=== PATIENT | female | born 1990 | race Caucasian/White ===

== ENCOUNTER 2019-07-13 09:17 | Emergency (ER) | payer SELFPAY ==
[~2019-07-13] VITALS: Ht 172.7 cm; Wt 86.1 kg
[~2019-07-13 09:17] MED LIST: IBUP800T19 PO; PENI500T PO
[2019-07-13 10:06] LABS: BASO # 0.1 x10^3/uL (0.0-0.2); BASO % 1 % (0-3); EOS % 0 % (0-3); HEMATOCRIT 38.4 % (36.0-47.0); HEMOGLOBIN 12.4 g/dL (12.0-15.5); LYMPH # 1.5 x10^3/uL (1.0-4.8); LYMPH % 17 % (24-48); MEAN CORPUSCULAR HEMOGLOBIN 28 pg (25-35); MEAN CORPUSCULAR HGB CONC 32 g/dL (31-37); MEAN CORPUSCULAR VOLUME 87 fL (79-100); MONO # 0.6 x10^3/uL (0.0-1.1); MONO % 7 % (0-9); NEUT # 6.4 x10^3uL (1.8-7.7); NEUT % 75 % (31-73); PLATELET COUNT 345 x10^3/uL (140-400); RED BLOOD COUNT 4.42 x10^6/uL (3.50-5.40); RED CELL DISTRIBUTION WIDTH 15.1 % (11.5-14.5); WHITE BLOOD COUNT 8.5 x10^3/uL (4.0-11.0)
--- NOTE | 2019-07-13 10:09 | PHYS DOC ---
Past History Past Medical History: Schizophrenia (CASANDRA DRAKE MD) Past Surgical History: (CASANDRA DRAKE MD) Smoking: Cigarettes, Greater than 1 pack/day Alcohol Use: None Drug Use: None (CASANDRA DRAKE MD) Adult General Chief Complaint Chief Complaint: PSYCH EVALUATION HPI HPI Patient is a 29 year old female who presents with complaint of hallucinations. The patient was referred to the emergency department from [facility]. Patient with noted history of schizophrenia. States that she is not currently on medications and notes that she has not been on medications for the past 2 years. States that she has recently been starting to hear voices. She denies any suicidal or homicidal ideation at this time and denies any somatic complaints. The patient went to the [facility] for further evaluation and was referred here for medical clearance. Denies any recent injuries. Has not taken any medications to harm herself and denies any other physical acts to try to harm herself. (CASANDRA DRAKE MD) Review of Systems Review of Systems Constitutional: Denies fever or chills [] Eyes: Denies change in visual acuity, redness, or eye pain [] HENT: Denies nasal congestion or sore throat [] Respiratory: Denies cough or shortness of breath [] Cardiovascular: Denies chest pain or edema[] GI: Denies abdominal pain, nausea, vomiting, bloody stools or diarrhea [] : Denies dysuria or hematuria [] Musculoskeletal: Denies back pain or joint pain [] Integument: Denies rash or skin lesions [] Neurologic: Auditory hallucinations, denies headache, focal weakness or sensory changes [] All other systems were reviewed and found to be within normal limits, except as documented in this note. (CASANDRA DRAKE MD) Allergies Allergies Allergies Coded Allergies Type Severity Reaction Last Updated Verified No Known Drug Allergies 01/10/14 No (CASANDRA DRAKE MD) Physical Exam Physical Exam Constitutional: Well developed, well nourished, no acute distress, non-toxic appearance. [] HENT: Normocephalic, atraumatic, bilateral external ears normal, oropharynx moist, no oral exudates, nose normal. [] Eyes: PERRLA, EOMI, conjunctiva normal, no discharge. [] Neck: Normal range of motion, no tenderness, supple, no stridor. [] Cardiovascular:Heart rate regular rhythm, no murmur [] Lungs & Thorax: Bilateral breath sounds clear to auscultation [] Abdomen: Bowel sounds normal, soft, no tenderness, no masses, no pulsatile masses. [] Skin: Warm, dry, no erythema, no rash. [] Back: No tenderness, no CVA tenderness. [] Extremities: No tenderness, no cyanosis, no clubbing, ROM intact, no edema. [] Neurologic: Alert and oriented X 3, normal motor function, normal sensory function, no focal deficits noted. [] Psychologic: Affect flat, judgement normal, mood normal, denies suicidal or homicidal ideation. [] (CASANDRA DRAKE MD) Current Patient Data Vital Signs Vital Signs Date Time Temp Pulse Resp B/P (MAP) Pulse Ox O2 Delivery O2 Flow Rate FiO2 07/13/19 09:27 138/72 (94) Lab Results Laboratory Tests Test 07/13/19 09:34 07/13/19 09:52 07/13/19 09:58 Urine Collection Type Unknown Urine Color Yellow Urine Clarity Clear Urine pH 7.0 Urine Specific [place] 1.020 Urine Protein Neg Urine Glucose (UA) Neg mg/dL Urine Ketones (Stick) 15 mg/dL Urine Blood Neg Urine Nitrite Neg Urine Bilirubin Neg Urine Urobilinogen Dipstick 0.2 mg/dL Urine Leukocyte Esterase Neg Urine RBC Occ /HPF Urine WBC 1-4 /HPF Urine Squamous Epithelial Cells Mod /LPF Urine Bacteria Few /HPF Urine Opiates Screen Neg Urine Methadone Screen Neg Urine Barbiturates Neg Urine Phencyclidine Screen Neg Urine Amphetamine/Methamphetamine Neg Urine Benzodiazepines Screen Neg Urine Cocaine Screen Neg Urine Cannabinoids Screen Neg Urine Ethyl Alcohol Neg White Blood Count 8.5 x10^3/uL Red Blood Count 4.42 x10^6/uL Hemoglobin 12.4 g/dL Hematocrit 38.4 % Mean Corpuscular Volume 87 fL Mean Corpuscular Hemoglobin 28 pg Mean Corpuscular Hemoglobin Concent 32 g/dL Red Cell Distribution Width 15.1 % Platelet Count 345 x10^3/uL Neutrophils (%) (Auto) 75 % Lymphocytes (%) (Auto) 17 % Monocytes (%) (Auto) 7 % Eosinophils (%) (Auto) 0 % Basophils (%) (Auto) 1 % Neutrophils # (Auto) 6.4 x10^3uL Lymphocytes # (Auto) 1.5 x10^3/uL Monocytes # (Auto) 0.6 x10^3/uL Eosinophils # (Auto) 0.0 x10^3/uL Basophils # (Auto) 0.1 x10^3/uL Sodium Level 141 mmol/L Potassium Level 3.9 mmol/L Chloride Level 106 mmol/L Carbon Dioxide Level 22 mmol/L Anion Gap 13 Blood Urea Nitrogen 8 mg/dL Creatinine 0.8 mg/dL Estimated GFR (Cockcroft-Gault) 84.8 Glucose Level 107 mg/dL Calcium Level 9.3 mg/dL Magnesium Level 2.1 mg/dL Salicylates Level 0.8 mg/dL Salicylate Last Dose Date Unknown Salicylate Last Dose Time Unknown Acetaminophen Level < 2.0 mcg/mL Acetaminophen Last Dose Date Unknown Acetaminophen Last Dose Time Unknown Bedside Urine HCG, Qualitative hcg negative (CASANDRA DRAKE MD) EKG EKG Not performed[] (CASANDRA DRAKE MD) Radiology/Procedures Radiology/Procedures Not performed[] (CASANDRA DRAKE MD) Course & Med Decision Making Course & Med Decision Making Pertinent Labs and Imaging studies reviewed. (See chart for details) 1045: Blood work, urinalysis, and drug screen ordered and reviewed in the emergency department. Patient's vital signs remained stable and testing unremarkable for any acute medical illness. The patient is medically cleared at this time for psychiatric screening. 1300: Patient remains in stable condition. Evaluated by Jose psychiatric screener from [facility]. After evaluation, patient deemed to benefit from voluntary inpatient psychiatric admission. Pending acceptance to a psychiatric facility at this time. 1600: Patient has been pacing in the emergency department. Became acutely agitated. Code adebayo was called. The patient appears acutely paranoid. She started asking nursing staff to give her back her daughter and started asking for the help of Yaakov and God. Due to agitated state the patient was administered 10 mg IM and Zyprexa. 1852: Patient resting comfortably at this time. Awaiting acceptance for inpatient psychiatric care. Care of patient was signed out to Dr. Estrada.[] (CASANDRA DRAKE MD) Course & Med Decision Making The patient was accepted for admission at [facility]. She was transferred there by ambulance. There were no further complications or issues prior to her transfer. (SADIE ESTRADA DO) Dragon Disclaimer Dragon Disclaimer This electronic medical record was generated, in whole or in part, using a voice recognition dictation system. (CASANDRA DRAKE MD) Departure Departure: Impression: Primary Impression: Schizophrenia Disposition: 65 XFER TO PSYCH HOSP/UNIT Condition: STABLE Referrals: BEAR ECHEVERRIA MD (PCP) Problem Qualifiers Primary Impression: Schizophrenia Schizophrenia type: unspecified Qualified Codes: F20.9 - Schizophrenia, unspecified CASANDRA DRAKE MD Jul 13, 2019 10:08 SADIE ESTRADA DO Jul 14, 2019 06:08
[2019-07-13 10:18] LABS: CALCIUM 9.3 mg/dL (8.5-10.1); CREATININE 0.8 mg/dL (0.6-1.0); GFR 84.8; MAGNESIUM 2.1 mg/dL (1.8-2.4); POTASSIUM 3.9 mmol/L (3.5-5.1)
[2019-07-13 10:22] LABS: BARBITURATES NEG (NEG); BENZODIAZEPINES NEG (NEG); CANNABINOIDS NEG (NEG); COCAINE NEG (NEG); METHADONE NEG (NEG); OPIATES NEG (NEG); PHENCYCLIDINE NEG (NEG)
[2019-07-13 10:24] LABS: ACETAMIN < 2.0 mcg/mL (10-30); SALIC 0.8 mg/dL (2.8-20.0)
[2019-07-13 10:26] LABS: AMPHETAMINE/METHAMPHETAMINE NEG (NEG)
[2019-07-13 10:34] LABS: BACTERIA,URINE FEW /HPF (0-FEW); BILIRUBIN,URINE NEG (NEG); CLARITY,URINE CLEAR; COLOR,URINE YELLOW; GLUCOSE,URINE NEG (NEG); NITRITE,URINE NEG (NEG); RBC,URINE OCC /HPF (0-2); UROBILINOGEN,URINE 0.2 mg/dL (0.2 mg/dL)
[2019-07-13 10:35] LABS: SQUAMOUS EPITHELIAL CELL,UR MOD /LPF
--- NOTE | 2019-07-13 10:54 | NUR ---
CALLED [facility] AND TALKED TO AARON REGARDING A PSYCH SCREEN. HE SAID HE WOULD COME DO THE SCREEN, SOON HE CAN.
[2019-07-13] MEDS ORDERED: OLANZapine IM 10 MG VIAL. IM ONE (16:00)
[2019-07-13 20:35] VITALS: BP 122/89
== END 2019-07-13 21:14 | disposition short-term general hospital (02) ==
LOC: ER 09:17
DX: F20.9 Schizophrenia, unspecified (principal); F17.210 Nicotine dependence, cigarettes, uncomplicated
CPT/HCPCS: 36415; 80048; 80307; 80329; 81001; 81025; 83735; 85025; 96372; 99285; G0480; J3490; 82003

== ENCOUNTER 2019-07-31 15:23 | Emergency (ER) | payer SELFPAY ==
[~2019-07-31] VITALS: Ht 172.7 cm; Wt 91.7 kg
[2019-07-31 15:30] VITALS: BP 132/75
--- NOTE | 2019-07-31 15:42 | PHYS DOC ---
Past History Past Medical History: Schizophrenia (LANI PARKER Jr., DO) Past Medical History: Anemia, Anxiety (JEANINE HOBOSN MD) Past Surgical History: (LANI PARKER Jr., DO) Smoking: Cigarettes, Greater than 1 pack/day Alcohol Use: None Drug Use: None (LANI PARKER Jr., DO) Adult General Chief Complaint Chief Complaint: Psyche eval [facility] HPI Patient is a 29-year-old female who presents to be evaluated for mental health. Patient indicates that she was recently at [facility] and released a little over a week ago. Patient states that today she is having severe that the world is going to end and people, including her sister, want to kill her by stabbing her in small increments. Patient denies any suicidal thoughts. She states that she is fearful and states that she would rather by a bullet than being stabbed to .[] (LANI PARKER Jr., DO) Review of Systems Review of Systems Constitutional: Denies fever or chills [] Respiratory: Denies cough or shortness of breath [] Cardiovascular: No additional information not addressed in HPI [] GI: Denies abdominal pain, nausea, vomiting, bloody stools or diarrhea [] Integument: Denies rash or skin lesions [] Neurologic: Denies headache, focal weakness or sensory changes [] All other systems were reviewed and found to be within normal limits, except as documented in this note. (LANI PARKER Jr., DO) Allergies Allergies Allergies Coded Allergies Type Severity Reaction Last Updated Verified No Known Drug Allergies 01/10/14 No (LANI PARKER Jr., DO) Physical Exam Physical Exam Constitutional: Well developed, well nourished, no acute distress, non-toxic appearance. [] HENT: Normocephalic, atraumatic, bilateral external ears normal, oropharynx moist, no oral exudates, nose normal. [] Eyes: PERRLA, EOMI, conjunctiva normal, no discharge. [] Neck: Normal range of motion, no tenderness, supple, no stridor. [] Cardiovascular:Heart rate regular rhythm, no murmur [] Lungs & Thorax: Bilateral breath sounds clear to auscultation [] Abdomen: Bowel sounds normal, soft, no tenderness. [] Skin: Warm, dry, no erythema, no rash. [] Extremities: No tenderness, no cyanosis, no clubbing, ROM intact, no edema. [] Neurologic: Awake and alert, no focal deficits noted. [] Psychologic: Flattened affect with depressed mood. [] (LANI PARKER Jr., DO) EKG EKG [] (LANI PARKER Jr., DO) Radiology/Procedures Radiology/Procedures [] (LANI PARKER Jr., DO) Course & Med Decision Making Course & Med Decision Making Pertinent Labs and Imaging studies reviewed. (See chart for details) [] (LANI PARKER Jr., DO) Course & Med Decision Making See Dr. Parker notes for details. Pt. hx admitted to [facility] 1 Week ago- Awaiting final Tele. Psych. eval. - 1900. Impression- 1. Hx. of Anxiety Disorder 2. Hx. of Schizophrenia 3. Anemia- HGB 10.8 4. Suicidal Ideation (JEANINE HOBSON MD) Dragon Disclaimer Dragon Disclaimer This electronic medical record was generated, in whole or in part, using a voice recognition dictation system. (LANI PARKER Jr., DO) Departure Departure: Disposition: 01 HOME/RESIDENCE PRIOR TO ADM Condition: STABLE Referrals: BEAR ECHEVERRIA MD (PCP) Dragon Disclaimer This chart was dictated in whole or in part using Voice Recognition software in a busy, high-work load, and often noisy Emergency Department environment. It may contain unintended and wholly unrecognized errors or omissions. (JEANINE HOBSON MD) LANI PARKER Jr., DO Jul 31, 2019 15:42 JEANINE HOBSON MD Jul 31, 2019 18:52
[2019-07-31 16:16] LABS: BACTERIA,URINE 0 /HPF (0-FEW); BILIRUBIN,URINE NEG (NEG); CLARITY,URINE CLEAR; COLOR,URINE YELLOW; GLUCOSE,URINE NEG (NEG); NITRITE,URINE NEG (NEG); SQUAMOUS EPITHELIAL CELL,UR OCC /LPF; UROBILINOGEN,URINE 0.2 mg/dL (0.2 mg/dL); WBC,URINE OCC /HPF (0-4)
[2019-07-31 16:16] LABS: BASO % 1 % (0-3); EOS # 0.1 x10^3/uL (0.0-0.7); EOS % 2 % (0-3); HEMATOCRIT 32.4 % (36.0-47.0); HEMOGLOBIN 10.8 g/dL (12.0-15.5); LYMPH # 1.6 x10^3/uL (1.0-4.8); LYMPH % 33 % (24-48); MEAN CORPUSCULAR HEMOGLOBIN 29 pg (25-35); MEAN CORPUSCULAR HGB CONC 33 g/dL (31-37); MEAN CORPUSCULAR VOLUME 86 fL (79-100); MONO # 0.5 x10^3/uL (0.0-1.1); MONO % 11 % (0-9); NEUT # 2.5 x10^3uL (1.8-7.7); NEUT % 53 % (31-73); PLATELET COUNT 261 x10^3/uL (140-400); RED BLOOD COUNT 3.76 x10^6/uL (3.50-5.40); RED CELL DISTRIBUTION WIDTH 14.8 % (11.5-14.5); WHITE BLOOD COUNT 4.8 x10^3/uL (4.0-11.0)
[2019-07-31 16:20] LABS: AMPHETAMINE/METHAMPHETAMINE NEG (NEG); BARBITURATES NEG (NEG); BENZODIAZEPINES NEG (NEG); CANNABINOIDS NEG (NEG); COCAINE NEG (NEG); METHADONE NEG (NEG); OPIATES NEG (NEG); PHENCYCLIDINE NEG (NEG)
[2019-07-31 16:27] LABS: ANION GAP 7 (6-14); BLOOD UREA NITROGEN 4 mg/dL (7-20); CALCIUM 8.2 mg/dL (8.5-10.1); CARBON DIOXIDE 26 mmol/L (21-32); CHLORIDE 99 mmol/L (98-107); CREATININE 0.7 mg/dL (0.6-1.0); GFR 98.9; GLUCOSE 117 mg/dL (70-99); POTASSIUM 3.4 mmol/L (3.5-5.1); SODIUM 132 mmol/L (136-145)
[2019-07-31 16:38] LABS: ALBUMIN 3.4 g/dL (3.4-5.0); ALK PHOS 50 U/L (46-116); ALT (SGPT) 27 U/L (14-59); AST (SGOT) 17 U/L (15-37); DIRECT BILIRUBIN 0.1 mg/dL (0.0-0.2); TOTAL PROTEIN 6.5 g/dL (6.4-8.2)
[2019-07-31 16:40] LABS: TOTAL BILIRUBIN < 0.1 mg/dL (0.2-1.0)
== END 2019-07-31 21:35 | disposition short-term general hospital (02) ==
LOC: ER 15:23
DX: R45.851 Suicidal ideations (principal); D64.9 Anemia, unspecified; F41.9 Anxiety disorder, unspecified; F20.9 Schizophrenia, unspecified; F17.210 Nicotine dependence, cigarettes, uncomplicated; Z86.2 Personal history of diseases of the blood and blood-forming organs and certain disorders involving the immune mechanism
CPT/HCPCS: 36415; 80048; 80076; 80307; 81001; 81025; 85025; 99285; G0480

== ENCOUNTER 2019-08-23 19:50 | Inpatient (IN) | payer SELFPAY ==
[~2019-08-23] VITALS: Ht 172.7 cm; Wt 89.4 kg
--- NOTE | 2019-08-23 20:13 | PHYS DOC ---
Past History Past Medical History: Anemia, Anxiety, Depression, Schizophrenia Past Surgical History: Smoking: Cigarettes, Greater than 1 pack/day Alcohol Use: Sober Drug Use: None General Adult EDM: Chief Complaint: HALLUCINATIONS AUDIBLE/VISUAL HPI: HPI: ".. I ... need... my .. things.. don't ... take them....".. " My mother is a devil.. or ... a demon... ".. "I need my medical records coder... " ..." I need Yaakov.. to protect me... demons....".." They are everywhere...." Patient is a 29 year old female who presents with above hx and complaints of mental status change with hallucinations and delusions. Pt. recently in seen in ED 07/30 for psychosis and exacerbation of her schizophrena. Pt. received a Tele. Psych. eval. Pt. normally follows with Dr. Shetty for health care maintenance. Pt. has had recent series of Hospital ED eval. and placement in psych. hospitals, [facility], [facility], and [place]. Mother reports that patient has become markedly unstable psychiatrically in the past 6 weeks. Patient reportedly has been off all psych meds the last 3 to 5 days. Currently patient is obviously extremely agitated, manic, pressured speech, hallucinating, delusions that demons are after her. Patient clutching a posterior of Yaakov... begging for Yaakov to protect her from demons coming out of the [place]. Review of Systems: Review of Systems: Constitutional: Denies fever or chills Eyes: Denies change in visual acuity HENT: Denies nasal congestion or sore throat Respiratory: Denies cough or shortness of breath Cardiovascular: Denies chest pain or edema GI: Denies abdominal pain, nausea, vomiting, bloody stools or diarrhea : Denies dysuria Musculoskeletal: Denies back pain or joint pain Integument: Denies rash Neurologic: Denies headache, focal weakness or sensory changes Endocrine: Denies polyuria or polydipsia Lymphatic: Denies swollen glands Psychiatric: Denies depression or anxiety Heart Score: Risk Factors: Risk Factors: DM, Current or recent (<one month) smoker, HTN, HLP, family history of CAD, obesity. Risk Scores: Score 0 - 3: 2.5% MACE over next 6 weeks - Discharge Home Score 4 - 6: 20.3% MACE over next 6 weeks - Admit for Clinical Observation Score 7 - 10: 72.7% MACE over next 6 weeks - Early Invasive Strategies Family History: Family History: Not currently available -due to patient's psychiatric state Current Medications: Current Meds: See nursing for home meds Allergies: Allergies: Allergies Coded Allergies Type Severity Reaction Last Updated Verified haloperidol Allergy Intermediate 07/31/19 Yes Physical Exam: PE: Constitutional: in acute emotional distress, non-toxic appearance. [] HENT: Normocephalic, atraumatic, bilateral external ears normal, oropharynx moist, no oral exudates, nose normal. [] Eyes: PERRLA, EOMI, conjunctiva normal, no discharge. [] Neck: Normal range of motion, no tenderness, supple, no stridor. [] Cardiovascular:Heart rate regular rhythm, no murmur [] Lungs & Thorax: Bilateral breath sounds clear to auscultation [] Abdomen: Bowel sounds normal, soft, no tenderness, no masses, no pulsatile masses. [] Skin: Warm, dry, no erythema, no rash. [] Back: No tenderness, no CVA tenderness. [] Extremities: No tenderness, no cyanosis, no clubbing, ROM intact, no edema. [] Neurologic: Alert and oriented X 3, normal motor function, normal sensory function, no focal deficits noted. [] Psychologic: Affect normal, judgement normal, mood normal. [] EKG: EKG: My interpretation EKG shows a sinus rhythm at 68 bpm. No findings of acute morphology. [] Radiology/Procedures: Radiology/Procedures: My interpretation of chest x-ray shows no acute cardiopulmonary findings for respiratory volume. Does have artifact on upper chest which suspect is the necklace she is wearing [] Course & Med Decision Making: Course & Med Decision Making Pertinent Labs and Imaging studies reviewed. (See chart for details) Patient admitted to Dr. Shetty for stabilization of electrolytes. Will need most likely placement for exacerbation of her schizophrenia and schizo affective disorder. Pt. required restraints with one on one because of her severe agitation, hallucination and delusions. Eventually pt.received Zyprexa 10 IM and 2 mg Ativan p.o. Pt. still requiring one-on-one with restraints at 0100 hrs-. additional dose of Ativan 2 mg given IM and 5 mg Zyprexa IM. [] Impression: 1. Mental Status Change- Acute Psychosis Exacerbation (Off her maintenance meds)- Hx. of Schizophrenia 2. Bipolar - Schizoaffective Disorder 3. Anemia Hgb 11. 4. Hyponatremia 130 5. Hypomagnesium 1.5 6. Active Hallucination and Delusions 7. Extremely Agitated, Manic Abran Disclaimer: Abran Disclaimer: This electronic medical record was generated, in whole or in part, using a voice recognition dictation system. Departure Departure: Disposition: 01 HOME/RESIDENCE PRIOR TO ADM Condition: STABLE Referrals: BEAR SHETTY MD (PCP) Abran Disclaimer This chart was dictated in whole or in part using Voice Recognition software in a busy, high-work load, and often noisy Emergency Department environment. It may contain unintended and wholly unrecognized errors or omissions. JEANINE HOBSON MD Aug 23, 2019 20:13
[2019-08-23 21:28] LABS: BASO # 0.1 x10^3/uL (0.0-0.2); BASO % 1 % (0-3); EOS # 0.1 x10^3/uL (0.0-0.7); EOS % 1 % (0-3); HEMATOCRIT 33.6 % (36.0-47.0); LYMPH # 1.9 x10^3/uL (1.0-4.8); LYMPH % 17 % (24-48); MEAN CORPUSCULAR HEMOGLOBIN 28 pg (25-35); MEAN CORPUSCULAR HGB CONC 33 g/dL (31-37); MEAN CORPUSCULAR VOLUME 85 fL (79-100); MONO # 0.9 x10^3/uL (0.0-1.1); MONO % 8 % (0-9); NEUT # 8.1 x10^3uL (1.8-7.7); NEUT % 74 % (31-73); PLATELET COUNT 304 x10^3/uL (140-400); RED BLOOD COUNT 3.93 x10^6/uL (3.50-5.40)
[2019-08-23 21:41] LABS: U PREG PATIENT NEGATIVE (NEG)
[2019-08-23 21:42] LABS: CALCIUM 8.3 mg/dL (8.5-10.1); CREATININE 0.6 mg/dL (0.6-1.0); GFR 118.2; POTASSIUM 4.1 mmol/L (3.5-5.1)
[2019-08-23 21:44] LABS: AMPHETAMINE/METHAMPHETAMINE NEG (NEG); BARBITURATES NEG (NEG); BENZODIAZEPINES NEG (NEG); CANNABINOIDS NEG (NEG); COCAINE NEG (NEG); METHADONE NEG (NEG); OPIATES NEG (NEG); PHENCYCLIDINE NEG (NEG)
[2019-08-23 21:49] LABS: ALBUMIN 3.8 g/dL (3.4-5.0); DIRECT BILIRUBIN 0.1 mg/dL (0.0-0.2); MAGNESIUM 1.5 mg/dL (1.8-2.4); TOTAL BILIRUBIN 0.2 mg/dL (0.2-1.0); TOTAL PROTEIN 6.8 g/dL (6.4-8.2)
[2019-08-23 22:03] LABS: BILIRUBIN,URINE NEG (NEG); CLARITY,URINE CLEAR; COLOR,URINE COLORLESS; GLUCOSE,URINE NEG (NEG); NITRITE,URINE NEG (NEG); UROBILINOGEN,URINE 0.2 mg/dL (0.2 mg/dL)
[2019-08-23 22:04] LABS: BACTERIA,URINE 0 /HPF (0-FEW); RBC,URINE 0 /HPF (0-2); SQUAMOUS EPITHELIAL CELL,UR FEW /LPF; WBC,URINE 0 /HPF (0-4)
--- NOTE | 2019-08-23 22:28 | RAD ---
PORTABLE CHEST 1V 08/23/2019 8:31 PM INDICATION: Dyspnea COMPARISON: None available TECHNIQUE: Portable frontal view of the chest is provided. FINDINGS: The cardiomediastinal silhouette is within normal limits. Lungs are clear. There are no significant pleural effusions. There is no pulmonary vascular congestion. No pneumothorax. No suspicious osseous abnormality. IMPRESSION: There is no acute cardiopulmonary process. Electronically signed by: Skyla Bass MD (08/23/2019 10:25 PM) [facility]
[2019-08-23 22:57] LABS: SEDIMENTATION RATE 6 (0-25)
[2019-08-23] MEDS ORDERED: ONDANSETRON PF 4 MG/2 ML VIAL. IVP PRN (23:00)
[2019-08-23] MEDS ORDERED: SODIUM BICARB ADULT 8.4% 50 MEQ/50 ML DISP.SYRIN. IV ONE (23:00)
[2019-08-23] MEDS ORDERED: IV NORMAL SALINE 1,000ML 1,000 ML IV ONE (23:00)
[2019-08-23] MEDS ORDERED: IV RINGERS SOLUTION,LACTATED 1,000 ML IV ONE (23:00)
[2019-08-23] MEDS ORDERED: diphenhydrAMINE HCL 25 MG CAPSULE PO ONE (23:15)
[2019-08-23] MEDS ORDERED: OLANZapine IM 10 MG VIAL. IM ONE (23:15)
[2019-08-23] MEDS ORDERED: LORazepam 1 MG TABLET PO ONE (23:15)
[2019-08-23] MEDS ORDERED: SODIUM BICARBONATE 50 MEQ/50 ML VIAL. IV ONE ×2 (23:30)
[2019-08-23] MEDS ORDERED: MAGNESIUM SULFATE 2GM 50 ML IV ONE (23:30)
--- NOTE | 2019-08-23 23:44 | EKG ---
[address] [address] Test Date: 2019-08-23 Test Time: 21:26:37 Pat Name: DYANA SPAULDING Department: Room: 113 A Gender: F Director Of [employer]: : 1990 Requested By: JEANINE HOBSON Order Number: [id number] Reading MD: Hakeem Espinoza Measurements Intervals [place] Rate: 68 P: 45 RI: 144 QRS: 49 QRSD: 84 T: 14 QT: 408 QTc: 434 Interpretive Statements SINUS RHYTHM Electronically Signed On 08-24-2019 11:20:36 CDT by Hakeem Espinoza
[2019-08-24] MEDS ORDERED: OLANZapine IM 10 MG VIAL. IM ONE (01:30)
--- NOTE | 2019-08-24 04:00 | NUR ---
The patient, DYANA SPAULDING, 29 y/o, F admitted by BEAR ECHEVERRIA MD, was given written information regarding hospital policies, unit procedures and contact persons. Valuables were checked and pt vitals were taken . pt is currently resting and has had no complaints tonight.
[2019-08-24 04:02] VITALS: BP 128/74
[2019-08-24] MEDS ORDERED: SODIUM BICARB ADULT 8.4% 50 MEQ/50 ML DISP.SYRIN. ONE (04:42)
[2019-08-24 06:24] VITALS: BP 106/65
[2019-08-24] MEDS ORDERED: IPRATRPIUM/ALBUTEROL 0.5/2.5MG 3 ML NEBU. NEB SCH (08:00)
[2019-08-24] MEDS ORDERED: CLON0.5T PO (08:02)
[2019-08-24] MEDS ORDERED: OXCA300T19 PO (08:02)
[2019-08-24 09:20] LABS: BASO % 1 % (0-3); EOS # 0.1 x10^3/uL (0.0-0.7); EOS % 1 % (0-3); HEMATOCRIT 33.3 % (36.0-47.0); HEMOGLOBIN 10.8 g/dL (12.0-15.5); LYMPH # 1.3 x10^3/uL (1.0-4.8); LYMPH % 25 % (24-48); MEAN CORPUSCULAR HEMOGLOBIN 28 pg (25-35); MEAN CORPUSCULAR HGB CONC 32 g/dL (31-37); MEAN CORPUSCULAR VOLUME 86 fL (79-100); MONO # 0.4 x10^3/uL (0.0-1.1); MONO % 8 % (0-9); NEUT # 3.4 x10^3uL (1.8-7.7); NEUT % 65 % (31-73); PLATELET COUNT 282 x10^3/uL (140-400); RED BLOOD COUNT 3.87 x10^6/uL (3.50-5.40); RED CELL DISTRIBUTION WIDTH 15.4 % (11.5-14.5); WHITE BLOOD COUNT 5.2 x10^3/uL (4.0-11.0)
[2019-08-24] MEDS ORDERED: RISP4TAB2 PO (09:25)
[2019-08-24] MEDS ORDERED: PROP20TA PO (09:25)
[2019-08-24] MEDS ORDERED: OLAN5TAB9 PO (09:25)
[2019-08-24 09:31] LABS: CALCIUM 8.2 mg/dL (8.5-10.1); CREATININE 0.8 mg/dL (0.6-1.0); GFR 84.8; POTASSIUM 3.6 mmol/L (3.5-5.1)
--- NOTE | 2019-08-24 09:45 | NUR ---
NSG NOTE; RECENT HISTORY REPORTED BY MOTHER: MOTHER WANG ROMAN [phone] PT DEVELOPED BIPOLAR W/ SCHIZOPHRENIC TENDENCIES AT APPROX AGE 20 AFTER EXPERIMENTING WITH METH AND K2. PT HAD BEEN SYMPTOM FREE X 2 YEARS WITHOUT REQUIRING MEDICATION AND HAS BEEN CLEAN AND SOBER FOR MANY YEARS PT HAS BEEN UNDER INCREASING LIFE STRESSORS LEADING TO INSOMNIA AND EXHAUSTION WHICH TRIGGERED A PSYCHOTIC BREAK APPROX 8 WEEKS AGO. PT HAS BEEN TO 3 PSYCH FACILITIES IN THE LAST 8 WEEKS WITH GOOD RESULTS AFTER HOSPITALIZATION AT [facility] WITH MED CENTER AND THEIR MEDICATION CHANGES. MOTHER STATES, UNFORTUNATELY, PT STOPPED TAKING HER PSYCH MEDS APPROX 6 DAYS AGO AND HAS BEEN INCREASINGLY MORE ERRATIC TARGETING THE MOTHER A "DEMON". MOTHER IS CONCERNED THAT SHE IS A TRIGGER FOR THE PT AT THIS TIME AND SUGGESTS THAT THE PT BE READMITTED TO [facility]. [employer] NOTIFIED AND WILL LOOK INTO POSSIBLE PLACEMENT
[2019-08-24 10:18] VITALS: BP 120/60
[2019-08-24] MEDS ORDERED: ALBUTEROL SULFATE 2.5 MG/3 ML NEBU. NEB PRN (10:45)
--- NOTE | 2019-08-24 13:59 | NUR ---
PATIENT IS DISCHARGED TO HOME, VERBALIZED UNDERSTANDING OF TAKING HER HOME MEDS, PT AMBULATED FROM ROOM 124 TO THE FRONT DOOR OF THE HOSPITAL ACCOMPANIED BY BARRY VICTORIA, TAKEN HOME BY FAMILY MEMBER VIA PERSONAL VEHICLE.
[2019-08-24 14:04] LABS: % ATYL 2 % (0-0); % BANDS 1 % (0-9); % BASOS 1 % (0-3); % EOS 2 % (0-5); % LYMPHS 15 % (24-48); % MONOS 11 % (0-10); % SEGS 68 % (35-66)
[2019-08-24 14:06] LABS: PLT ESTIMATE ADEQUATE (ADEQUATE)
--- NOTE | 2019-08-24 14:20 | HP ---
ADMIT DATE: 08/23/2019 HISTORY OF PRESENT ILLNESS: A 29-year-old admitted, came in through the Emergency Room. The patient's history of complaints, she has been having some hallucinations and delusions. She has been in multiple hospitals such as [facility], [facility] and [place]. Apparently, she has been under a lot of stress of late of being laid off at her job. The patient has become increasingly agitated, manic, pressured speech, hallucinating and delusions. She seems to want to talk about the conflict of good and evil and God winning over her and also begging through Yaakov to protect her from the demons ____. The patient was admitted because of this acute psychosis. She may have been off her medications and the like. She also claims that her mother was a devil and needed protection from spiritual means. PAST MEDICAL HISTORY: Anemia, anxiety, depression, schizophrenia, . SOCIAL HISTORY: The patient smokes a pack of cigarettes a day. Has been drinking alcohol in the past, but says she has been sober here of late. The patient also has episodes of bipolar disease. Adverse reaction to HALDOL. Socially, the patient, as noted, smokes a pack of cigarettes a day, at times binge ____. Denies hard drug use. REVIEW OF SYSTEMS: Outside of her hallucinations and paranoid psychoses, the patient denies any chest pain, shortness of breath or abdominal pain. Denies any melena, hematochezia, hematemesis and neurologically baseline for her. Neurologically, she is stable. Psychiatrically, she is very unstable. PHYSICAL EXAMINATION: VITAL SIGNS: Blood pressure 150/99, respiratory rate 18, pulse 60, afebrile. HEENT: The patient's head was atraumatic, normocephalic. Eyes: PERRLA without jaundice. Mouth and throat were normal. NECK: Supple. LUNGS: Clear. CARDIOVASCULAR: Stable. ABDOMEN: Soft, diffuse tenderness. No rebounding or guarding. EXTREMITIES: No clubbing, cyanosis or edema. NEUROLOGIC: Intact. The patient's chest x-ray was unremarkable. LABORATORY DATA: The labs were non demonstrative. She is slightly anemic at 10.8 and 33. The patient's chemistries were basically normal. Blood sugar 112-196. Creatinine ____. Toxicology was negative for all measured quantities. As noted, the patient has acute psychosis and fighting demons and paranoid against her mother. The patient otherwise will be admitted, placed on IV fluids and was given IV Ativan. We will try to get her medication list from [facility], get her back on those and make further evaluation on her as indicated per those results. IMPRESSION: Acute psychosis. PLAN: As above. BEAR ECHEVERRIA MD DR: MORENA/brandyn JOB#: [id number] / [id number]
== END 2019-08-24 13:45 | disposition home or self-care (01) | DRG 641 ==
LOC: ER 19:50 → 1 SOUTH 22:30 → UNDOADMIN 22:30
PROVIDERS: ADMIT Family Medicine; ATTEND Family Medicine
DX: E87.1 Hypo-osmolality and hyponatremia (principal); F29 Unspecified psychosis not due to a substance or known physiological condition; E83.42 Hypomagnesemia; F17.210 Nicotine dependence, cigarettes, uncomplicated; F25.9 Schizoaffective disorder, unspecified; F31.9 Bipolar disorder, unspecified; Z98.891 History of uterine scar from previous surgery; F41.9 Anxiety disorder, unspecified; Z88.8 Allergy status to other drugs, medicaments and biological substances; D64.9 Anemia, unspecified
CPT/HCPCS: 36415; 71045; 80048; 80076; 80307; 81001; 81025; 82550; 83735; 84443; 84484; 85007; 85025; 85610; 85651; 85730; 93005; 94640; G0480; J2060; J3475; J3490; J7120; Q0163; J7030